=== PATIENT | male | born 1990 | race Caucasian/White ===

== ENCOUNTER 2018-07-16 20:30 | Emergency (ER) | payer OTHER, SELFPAY ==
[2018-07-16 20:35] VITALS: BP 116/76; PULSE 92; RESP 18; TEMP 37.3; O2SAT 97; BMI 22.0
--- NOTE | 2018-07-16 21:50 | ED.BACK ---
HPI - Back Pain/Injury General Chief Complaint: Back Pain/Injury Stated Complaint: states lower back pain Time Seen by Provider: 07/16/18 21:35 Source: patient Mode of arrival: ambulatory Limitations: no limitations History of Present Illness HPI Narrative: 27-year-old male nonsmoker with noncontributory in medical history presents with severe left lower back pain since yesterday. He denies any specific injury but states he ran a mi and a half and his pain has gradually worsened since. He denies any radiation of the pain down into his leg. He denies numbness, tingling or weakness. He denies any trouble with bowel or bladder control. He denies foot drop. He has had no fever and denies IV drug abuse. His pain is worse with motion and improves with rest MD Complaint: back pain Onset (ago): day(s) Duration: constant Similar Symptoms Previously: No Location: lumbar spine Severity: moderate Quality: burning and aching Radiation: none Relieving factors: immobilization Exacerbating factors: movement and walking Associated symptoms: denies other symptoms Related Data Previous Rx's Medication Instructions Recorded cyclobenzaprine 10 mg PO TID PRN #14 tab 07/16/18 ketorolac 10 mg PO Q6H PRN #14 tab 07/16/18 Allergies Allergy/AdvReac Type Severity Reaction Status Date / Time acetaminophen Allergy Severe Anaphylaxis Verified 07/16/18 22:23 [From Fioricet with Codeine] butalbital Allergy Severe Anaphylaxis Verified 07/16/18 22:23 [From Fioricet with Codeine] caffeine Allergy Severe Anaphylaxis Verified 07/16/18 22:23 [From Fioricet with Codeine] codeine AdvReac Severe Anaphylaxis Verified 07/16/18 22:23 Review of Systems Constitutional Denies chills, Denies fever(s), Denies lethargy and Denies weakness Eyes Denies change in vision, Denies eye discharge, Denies irritation and Denies loss of vision ENT Ears, Nose, Mouth, and Throat: Denies change in voice, Denies neck pain and Denies sore throat Cardiovascular Denies chest pain, Denies irregular heart rhythm, Denies lightheadedness, Denies palpitations, Denies dyspnea, Denies dyspnea on exertion and Denies orthopnea Respiratory Denies cough, Denies dyspnea, Denies dyspnea on exertion and Denies wheezing Gastrointestinal Gastrointestinal: Denies abdominal pain, Denies change in bowel habits, Denies diarrhea, Denies nausea and Denies vomiting Genitourinary Denies hematuria, Denies flank pain, Denies urinary incontinence and Denies urinary urgency Musculoskeletal Reports back pain and Denies neck pain Integumentary/Breasts Denies pruritus, Denies erythema, Denies rash and Denies wounds Neurologic Denies confusion, Denies loss of vision and Denies weakness Psychiatric Denies anxiety, Denies confusion, Denies depression, Denies homicidal ideation and Denies suicidal ideation Endocrine Denies palpitations Hematologic/Lymphatic Denies easy bruising Allergic/Immunologic Denies wheezing [facility] Medical History (Updated 07/17/18 @ 03:03 by Christoph Sanches DO) Feared complaint without diagnosis (Acute) Exam Narrative Exam Narrative: GEN: AOx3 and in mild distress EYES: Pupils are equal, round, and reactive to light and accommodation. Extraoccular muscles are intact bilaterally. There is no subconjunctival hemorrhage or exudate. CHEST: Lungs are clear to auscultation bilaterally and free of wheezes, rales, or rhonchi. Heart rate is regular rhythm, there are no murmurs, clicks, rubs, or gallops. There is no chest wall tenderness. ABD: Abdomen is soft and nontender. There is no guarding or rebound. Bowel sounds are normal in all 4 quadrants. There is no mass or organomegaly. EXT: Full painless ROM of all extremities with no loss of sensation or strength. SKIN: Warm, pink, and dry. No erythema or rash BACK: filter tender jelly but free of any obvious external abnormalities. Patient exam notes decreased range of motion and muscle spasm, but no CVA tenderness, or vertebral point tenderness. There are no symptoms of cauda equina such as saddle anesthesia, and decreased reflexes, decreased sensation or strength. Initial Vital Signs Initial Vital Signs: Vital Signs Temperature 99.1 F 07/16/18 20:35 Pulse Rate 92 H 07/16/18 20:35 Respiratory Rate 18 07/16/18 20:35 Blood Pressure 116/76 07/16/18 20:35 Pulse Oximetry 97 07/16/18 20:35 Course Orders Ordered: ED Orders 07/16/18 22:25 Basic Metabolic Panel Stat Complete Blood Count AUTO DIFF Stat Discontinued Medications Hydrocodone Bitart/Acetaminophen (Vicodin Prepack) 1 bottle MISC SEEINSTR ONE Stop: 07/16/18 22:58 Last Admin: 07/16/18 23:04 Dose: 1 bottle Ketorolac Tromethamine (Toradol) 60 mg IM NOW ONE Stop: 07/16/18 22:19 Last Admin: 07/16/18 22:32 Dose: 60 mg Vital Signs - 8 hr 07/16/18 20:35 07/16/18 23:05 Temperature 99.1 F Pulse Rate 92 H 90 Respiratory Rate 18 18 Blood Pressure 116/76 114/65 Pulse Oximetry 97 98 MDM - Back Pain/Injury Lab Data Result diagrams: 07/16/18 22:25 07/16/18 22:25 Lab Results 07/16/18 07/16/18 Range/Units 22:25 22:25 WBC 11.5 H (4.5-11.0) X10^3/uL RBC 4.86 (4.5-5.9) X10^6/uL Hgb 14.6 (13.5-17.5) g/dL Hct 42.1 (41-53) % MCV 86.6 (80-100) fL MCH 30.0 (26-34) PG MCHC 34.7 (30-36) % RDW 13.3 (11.6-14.8) % Plt Count 229 (150-400) X10^3/uL Neut % (Auto) 51.7 (50-75) % Lymph % (Auto) 33.4 (25-40) % Phillips % (Auto) 10.1 (3-14) % Eos % (Auto) 3.6 (2-4) % Baso % (Auto) 1.2 (0-2) % Neut # (Auto) 6000 (9243-4531) /uL Lymph # (Auto) 3800 (3822-9455) /uL Phillips # (Auto) 1200 H (0-900) /uL Eos # (Auto) 400 (0-450) /uL Baso # (Auto) 100 (0-100) /uL Sodium 141 (137-145) mmol/L Potassium 4.1 (3.4-5.1) mmol/L Chloride 101 (98-107) mmol/L Carbon Dioxide 32 (22-32) mmol/L BUN 11 (9-20) mg/dL Creatinine 0.90 (0.66-1.25) mg/dL Estimated GFR > 60.0 (>60) mL/min BUN/Creatinine Ratio 12.2 (6-22) Glucose 102 H (70-100) mg/dL Calcium 9.3 (8.4-10.2) mg/dL Urine Dip Bedside Urine Glucose Negative Bedside Urine Bilirubin - Negative Bedside Urine Ketone - Negative Urine Specific [place] 1.025 Bedside Urine Occult Blood - Negative Bedside Urine pH 6.5 Bedside Urine Protein - Negative Bedside Urine Urobilinogen +/- 1mg Bedside Urine Nitrite - Negative Bedside Urine Leukocytes - Negative Esterase MDM Narrative Medical decision making narrative: Multiple etiologies for patient's symptoms considered including: [Musculoskeletal problem versus kidney stone versus pyelonephritis versus epidural abscess versus other] Patient's symptoms improved or duration of stay with above-stated therapies. Findings and discharge diagnosis discussed with patient/family followed by verbalization of understanding Return precautions discussed with patient/family whom verbalize understanding. Discharge Plan Departure Patient Disposition: Home Clinical Impression: Strain of lumbar region Qualifiers: Encounter type: initial encounter Qualified Code(s): S39.012A - Strain of muscle, fascia and tendon of lower back, initial encounter Discharge Date/Time: 07/16/18 23:05 Interventions: ED Discharge Assessment Last Done: 07/16/18 23:05 Instructions: DI for Back Spasm Activity Restrictions/Additional Instructions: *You have been diagnosed with [back pain with spasm ] *What to do: *Take medications as directed *Follow up with your primary care provider in 2-3 days, call for an appointment. Let them know you were seen in the Emergency Department and that we ask that you be seen in follow up *Return to ER if you should have any new, worsening or concerning symptoms Prescriptions: New cyclobenzaprine 10 mg tablet 10 mg PO TID PRN (Reason: muscle spasm) Qty: 14 RF: 0 ketorolac 10 mg tablet 10 mg PO Q6H PRN (Reason: pain) Qty: 14 RF: 0
[2018-07-16] MEDS: KETOROLAC 60 MG/2 ML VIAL IM (22:32)
--- NOTE | 2018-07-16 22:32 | PC.NURSE ---
pt requested right deltoid for injection site, states that's where the gives it
[2018-07-16 22:40] LABS: Add Manual Diff / Slide Review NO; Basophils Absolute Auto 100 /uL (0-100); Basophils Percent Auto 1.2 % (0-2); Eosinophils Absolute Auto 400 /uL (0-450); Eosinophils Percent Auto 3.6 % (2-4); Hematocrit 42.1 % (41-53); Hemoglobin 14.6 g/dL (13.5-17.5); Lymphocytes Absolute Auto 3800 /uL (1100-4500); Lymphocytes Percent Auto 33.4 % (25-40); Mean Corpuscular HGB Conc 34.7 % (30-36); Mean Corpuscular Volume 86.6 fL (80-100); Monocytes Absolute Auto 1200 /uL (0-900); Monocytes Percent Auto 10.1 % (3-14); Neutrophils Absolute Auto 6000 /uL (1500-7000); Neutrophils Percent Auto 51.7 % (50-75); Platelet Count 229 X10^3/uL (150-400); Red Blood Cell Count 4.86 X10^6/uL (4.5-5.9); Red Cell Distribution Width 13.3 % (11.6-14.8); White Blood Cell Count 11.5 X10^3/uL (4.5-11.0)
[2018-07-16 22:47] LABS: BUN Creatinine Ratio 12.2 (6-22); Blood Urea Nitrogen 11 mg/dL (9-20); Calcium 9.3 mg/dL (8.4-10.2); Carbon Dioxide 32 mmol/L (22-32); Chloride 101 mmol/L (98-107); Estimated Glomerular Filt Rate > 60.0 mL/min (>60); Glucose 102 mg/dL (70-100); HEMOLYSIS < 15 (0-50); Potassium 4.1 mmol/L (3.4-5.1); Sodium 141 mmol/L (137-145)
[2018-07-16] MEDS: HYDROCODONE/ACET 5/325 PREPACK 1 BOTTLE MISC (23:04)
[2018-07-16 23:05] VITALS: BP 114/65; PULSE 90; RESP 18; O2SAT 98
== END 2018-07-16 23:05 | disposition home or self-care (01) ==
PROVIDERS: Emergency Provider Emergency Medicine
DX: S39.012A Strain of muscle, fascia and tendon of lower back, initial encounter (principal)
CPT/HCPCS: 36415; 80048; 81003; 85025; 96372; 99282; 99283; J1885